=== PATIENT | male | born 1990 | race Two or more races ===

== ENCOUNTER 2025-05-02 11:14 | Outpatient (CLI) | payer OTHER | END 2025-05-02 11:27 | disposition home or self-care (01) | LOC: RAD 11:14 | PROVIDERS: ATTEND Internal Medicine | DX: J32.9 Chronic sinusitis, unspecified (principal); M54.2 Cervicalgia; M54.50 Low back pain, unspecified ==

== ENCOUNTER 2025-06-02 14:54 | Outpatient (CLI) | payer OTHER | END 2025-06-02 15:00 | disposition home or self-care (01) | LOC: RAD 14:54 | DX: M54.6 Pain in thoracic spine (principal) ==